=== PATIENT | female | born 2000 | race Caucasian/White ===

== ENCOUNTER 2024-12-13 12:19 | Emergency (ER) | payer BC, OTHER, SELFPAY ==
--- NOTE | 2024-12-13 12:38 | ED_ITS ---
HPI - Wound/Laceration General Chief Complaint: Wound/Laceration Stated Complaint: finger laceration Time Seen by Provider: 12/13/24 12:55 Source: patient and RN notes reviewed Mode of arrival: ambulatory Limitations: no limitations History of Present Illness HPI narrative: 24-year-old female presents concern for skin avulsion of the 5th digit of her right hand. It is reports she lacerated the finger yesterday when she was using a mandoline vegetable chopper. She is up-to-date on her tetanus vaccination. She reports her dad dressed the wound last night and she had a look at it since. Related Data Home Medications ?Medication ?Instructions ?Recorded ?Confirmed ?Last Taken ?Type No Home Medications 12/13/24 12/13/24 Unknown History Allergies Allergy/AdvReac Type Severity Reaction Status Date / Time No Known Allergies Allergy Unverified 12/13/24 12:53 Review of Systems Review of Systems: CONSTITUTIONAL: Denies malaise, chills, sweats, or fever. SKIN: Reports laceration to the 5th digit of the right hand MUSCULOSKELETAL: Denies muscle skeletal pain NEUROLOGIC: Denies numbness, weakness All systems reviewed & are unremarkable except as noted in HPI and below PMFSH Comments At time of signature, agree with nursing past medical, surgical, social and family history. There is no relevant family history pertinent to the presenting complaint Exam Narrative: GENERAL: Well-appearing, well-nourished, and in no acute distress. HEAD: Normocephalic EYES: PERRLA, conjunctivae clear NECK: Supple. CHEST: Speaks in full sentences. No respiratory distress. HEART: Regular rate and rhythm. Normal and equal peripheral pulses. EXTREMITIES: 5th digit of the right hand has normal strength and sensation. 5/5 strength with digit flexion, extension. Range of motion gross normal. No clubbing, cyanosis, or edema noted. Normal digital cascade with flexion of fingers, median, ulnar and radial nerve intact. Normal sensation of each side of finger. Distal capillary refill less than 3 seconds. SKIN: Warn, dry, intact, pink. 2 cm x 0.3 cm skin avulsion noted to the lateral distal 5th digit of the right hand with no active bleeding NEURO: Alert and oriented x3. PSYCH: Normal mood and affect Course Course Emergency Course: Surgicel placed on wound, dressed with a nonstick sterile dressing. Patient is aware of diagnosis, understands and agrees to treatment plan. Anticipatory guidance given. Patient agrees to follow-up as directed and is aware of reasons to seek care at the emergency department. Portions of this record may have been created with voice recognition software Level of Care: Express Care Visit Vital Signs Vital signs: Reviewed. MDM - Wound/Laceration MDM Narrative Medical decision making narrative: Wound explored for foreign body and copious irrigation provided with no evidence of FB. Discussed the potential of retained foreign body with the patient and signs/symptoms that should prompt the patient to immediately go to the ED for reevaluation. The laceration was identified to be [XXX] cm in length and located at [XXX]. The laceration was cleansed with [XXX] and no debris was noted. Local anesthesia was obtained by injecting 1% lidocaine at the laceration site. The laceration was then irrigated with 500cc of high-pressure irrigation. The wound was explored and no foreign bodies were found. There was no evidence of tendon or nerve lacerations. The wound was closed with [ XXX suture type, number, and technique]. A sterile dressing was then applied and anticipatory guidance was provided. Tetanus prophylaxis [(was/was not)] given Differential Diagnosis Differential diagnosis: Likely laceration, abrasion and avulsion of skin Critical Care Time Critical Care Time Critical Care Time: No Discharge Plan Discharge Clinical Impression: Avulsion of skin Patient Disposition: Home Condition: Stable Instructions: Skin Avulsion (ED) Additional Instructions: Keep your dressing in place for 24 hours. If you notice any bleeding through the dressing, apply pressure and seek medical attention. In 24 hours remove the outer layer of the dressing carefully, soak the inner layer of the dressing in warm water until it dislodges from the skin. After that please wash the wound carefully and warm soap and water twice daily, apply Neosporin twice daily and bandage as needed. If bleeding resumes after remove the dressing you may reapply the Surgicel as needed and repeat the process. You may let soap and water run over your wound, but until your wound is healed, avoid soaking in bathtubs, swimming pools, etc. If you have any concerns for infection such as redness, swelling, purulent drainage return for reevaluation. Patient Language: Citizen Of [place] Prescriptions: No Action No Home Medications Follow-up/Referrals: Weinstein,Mariel M., RN [Primary Care Provider] - Time of Disposition: 13:08
[2024-12-13 12:43] VITALS: BP 110/62; PULSE 62; RESP 18; TEMP 36.9; O2SAT 100
[2024-12-13] MEDS: CELLULOSE OXIDIZED 2 x 14 INCH 1 PKT XX (13:10)
== END 2024-12-13 13:14 | disposition home or self-care (01) ==
PROVIDERS: Emergency Provider Nurse Practitioner
DX: S61.206A Unspecified open wound of right little finger without damage to nail, initial encounter (principal); W27.4XXA Contact with kitchen utensil, initial encounter
CPT/HCPCS: 99202; G0463